=== PATIENT | male | born 1995 | race Caucasian/White ===

== ENCOUNTER 2017-12-25 20:52 | Emergency (ER) | payer BC ==
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
--- NOTE | 2017-12-25 22:20 | RAD ---
Indication: Neck pain post fall one day ago. Comparison: No relevant prior exams available on the [facility] [place] for comparison. Technique: Lateral view of the cervical spine performed with a cervical collar in place. Report: The top of T1 is partially obscured due to superimposed tissues. Conspicuity is adequate to absence of facet subluxation from the base of the skull through the cervicothoracic junction. Negative for cervical spine fracture. Preserved disc spaces. Unremarkable prevertebral soft tissue contours. IMPRESSION: Negative lateral trauma screening radiograph of the cervical spine. Recommend removal of the collar and completion of the cervical spine series for full assessment.
--- NOTE | 2017-12-25 22:21 | RAD ---
INDICATION: RIGHT hand working correctly since fall one day ago. COMPARISON: No relevant prior exams available on the [facility] [place] for comparison. TECHNIQUE: AP, lateral, and oblique views RIGHT hand. REPORT: Normal articular alignment and preserved joint spaces. Negative for fracture. Unremarkable soft tissue contours. IMPRESSION: Negative radiographic exam of the RIGHT hand.
[2017-12-26] MEDS ORDERED: Cyclobenzaprine TAB* 10 MG PO ONE (00:40)
[2017-12-26 01:10] VITALS: BP 133/91
--- NOTE | 2017-12-26 07:54 | RAD ---
HISTORY: Head injury COMPARISONS: None TECHNIQUE: Multiple contiguous axial CT scans were obtained of the head without intravenous contrast. FINDINGS: HEMORRHAGE/INFARCT: There is no hemorrhage or acute infarct. MASSES/SHIFT: There is no mass or shift. EXTRA-AXIAL SPACES: There are no extra-axial fluid collections. SULCI AND VENTRICLES: The sulci and ventricles are normal in size and position for the patient's stated age. CEREBRUM: There are no focal parenchymal abnormalities. BRAINSTEM: There are no focal parenchymal abnormalities. CEREBELLUM: There are no focal parenchymal abnormalities. VESSELS: The vessels are grossly normal. PARANASAL SINUSES: The paranasal sinuses are clear. ORBITS: The orbits are unremarkable. BONES AND SOFT TISSUE: No bone or soft tissue abnormalities are noted. OTHER: None IMPRESSION: NO ACUTE INTRACRANIAL PATHOLOGY.
--- NOTE | 2017-12-26 07:55 | RAD ---
HISTORY: Neck injury, right hand weakness COMPARISONS: None TECHNIQUE: Multiple contiguous axial CT scans were obtained of the cervical spine without intravenous contrast, with coronal and sagittal multiplanar reformations. FINDINGS: BRAIN: The visualized brain is unremarkable CENTRAL CANAL: Evaluation of the central canal is limited on CT technique, however there is no obvious canalicular mass or epidural hemorrhage. ALIGNMENT: There is straightening of the normal cervical lordosis. VERTEBRAL BODIES: The odontoid process is intact. The atlantoaxial intervals are symmetric. The vertebral bodies are normal in attenuation, without fracture. JOINTS: There is no subluxation or dislocation MUSCULATURE: Normal INTERVERTEBRAL DISCS: The intervertebral disc spaces are relatively preserved in height. AXIAL IMAGES: On axial images, there is no osseous neural foraminal narrowing or central canal stenosis. SOFT TISSUES: The visualized soft tissues of the neck are unremarkable. The prevertebral fat stripe is preserved. OTHER: None. IMPRESSION: STRAIGHTENING OF THE CERVICAL LORDOSIS. NO ACUTE OSSEOUS INJURY TO THE CERVICAL SPINE.
== END 2017-12-26 01:09 | disposition home or self-care (01) ==
LOC: ED 20:52
DX: S69.91XA Unspecified injury of right wrist, hand and finger(s), initial encounter (principal); S09.90XA Unspecified injury of head, initial encounter; S19.9XXA Unspecified injury of neck, initial encounter; R53.1 Weakness; W01.0XXA Fall on same level from slipping, tripping and stumbling without subsequent striking against object, initial encounter; Y92.9 Unspecified place or not applicable
CPT/HCPCS: 29125; 70450; 72020; 72125; 99282; A9270-GY